=== PATIENT | female | born 1965 | race Caucasian/White ===

== ENCOUNTER → 2024-09-06 19:31 | Outpatient (REF) | payer OTHER, SELFPAY | LOC: WDC 19:31 | PROVIDERS: ATTENDING PHYSICIAN Family Medicine | DX: Z12.31 Encounter for screening mammogram for malignant neoplasm of breast (principal) | CPT/HCPCS: 77063; 77067 ==

== ENCOUNTER → 2025-01-04 14:01 | Outpatient (REF) | payer OTHER, SELFPAY | LOC: HWRAD 14:01 | PROVIDERS: ATTENDING PHYSICIAN Family Medicine | DX: R19.09 Other intra-abdominal and pelvic swelling, mass and lump (principal) | CPT/HCPCS: 76882 ==